=== PATIENT | male | born 1965 | race Caucasian/White ===

== ENCOUNTER 2017-09-17 10:27 | Emergency (ER) | payer OTHER ==
[~2017-09-17] VITALS: Ht 190.5 cm; Wt 98.0 kg
[~2017-09-17 10:27] MED LIST: D3 VITAMIN400 IU/ML PO; DEP250 PO; ECO81 PO; FIBER; FISH OIL PO; LAM100 PO; NAP500 PO; RIT20 PO; RITE AID MELATON1 MG PO; SYN2 PO; TUMS CH
[2017-09-17 10:30] VITALS: Ht 190.5 cm; Wt 98.0 kg
[2017-09-17 11:01] LABS: BASOPHIL % 0.5 % (0-2); PLATELET COUNT 203 x10^3mcL (130-400); RED CELL DISTRIBUTION WIDTH 14.5 % (11.5-14.5)
[2017-09-17 11:11] LABS: CALCIUM 8.3 mg/dL (8.5-10.1); CARBON DIOXIDE 27.6 mmol/L (21-32); CREATININE SERUM 1.4 mg/dL (0.7-1.3); POTASSIUM SERUM 4.3 mmol/L (3.5-5.1)
[2017-09-17 11:20] LABS: ALBUMIN 3.5 g/dL (3.4-5.0); BILIRUBIN TOTAL 0.5 mg/dL (0.20-1.00); TOTAL PROTEIN, SERUM 6.4 g/dL (6.4-8.2)
[2017-09-17 12:03] LABS: AMPHETAMINE QUAL UR NONE DETECTED (See below)
[2017-09-17 12:45] VITALS: BP 99/51
== END 2017-09-17 12:45 | disposition home or self-care (01) ==
LOC: ED 10:27
PROVIDERS: Emergency Medicine
DX: R07.89 Other chest pain (principal); R06.02 Shortness of breath; R05 Cough; R00.2 Palpitations; F31.9 Bipolar disorder, unspecified; E78.00 Pure hypercholesterolemia, unspecified; E03.9 Hypothyroidism, unspecified
CPT/HCPCS: 36415; 83880